=== PATIENT | male | born 1935 | race Caucasian/White ===

== ENCOUNTER → 2017-08-16 07:35 | Outpatient (CLI) | payer MEDICARE, BC ==
[2010-05-25 12:57] VITALS: BMI 28.1
== END | disposition home or self-care (01) ==
LOC: D.RT 07:35
DX: Z77.090 Contact with and (suspected) exposure to asbestos (principal)

== ENCOUNTER → 2017-10-24 17:35 | Outpatient (CLI) | payer MEDICARE, BC ==
[2010-05-25 12:57] VITALS: BMI 28.1
[2017-10-24 20:51] LABS: CHOL - HDL RATIO 1.9 ratio (2.3-4.9); LDL-HDL RATIO 0.8 ratio (1.5-3.5)
== END | disposition home or self-care (01) ==
LOC: D.LABREF 17:35
PROVIDERS: Internal Medicine Cardiovascular Disease
DX: E78.5 Hyperlipidemia, unspecified (principal)

== ENCOUNTER → 2019-02-17 12:52 | Outpatient (CLI) | payer MEDICARE, BC ==
[2010-05-25 12:57] VITALS: BMI 28.1
== END | disposition home or self-care (01) ==
LOC: D.RT 12:52
PROVIDERS: ATTEND Internal Medicine Pulmonary Disease
DX: J44.9 Chronic obstructive pulmonary disease, unspecified (principal)

== ENCOUNTER → 2020-02-16 11:37 | Outpatient (CLI) | payer MEDICARE, BC ==
[2010-05-25 12:57] VITALS: BMI 28.1
== END | disposition home or self-care (01) ==
LOC: D.LAB 11:37
PROVIDERS: ATTEND Internal Medicine Pulmonary Disease
DX: Z11.59 Encounter for screening for other viral diseases (principal)

== ENCOUNTER → 2020-02-19 14:55 | Outpatient (CLI) | payer MEDICARE, BC ==
[2010-05-25 12:57] VITALS: BMI 28.1
== END | disposition home or self-care (01) ==
LOC: D.RT 14:55
PROVIDERS: ATTEND Internal Medicine Pulmonary Disease
DX: J44.9 Chronic obstructive pulmonary disease, unspecified (principal)

== ENCOUNTER 2020-10-19 20:40 | Observation (INO) | payer MEDICARE, BC ==
[~2020-10-19] VITALS: Ht 172.7 cm; Wt 79.5 kg
[2020-10-19 21:17] LABS: BASOPHILS 0.3 % (0-2); EOSINOPHILS 1.2 % (0-7); HEMOGLOBIN 11.9 g/dL (13.5-17.5); IMMATURE GRANULOCYTES 0.3 % (0-5); LYMPHOCYTE ABS# 1.09 10x3/uL (1.32-3.57); LYMPHOCYTES 14.2 % (15-50); MCH 29.8 pg (26.0-34.0); MCHC 32.2 g/dL (31.0-37.0); MCV 92.5 fL (80.0-100.0); MEAN PLATELET VOLUME 9.9 fL (7.4-10.4); MONOCYTES 6.4 % (2-11); NEUTROPHIL ABS# 5.95 10x3/uL (1.78-5.38); NEUTROPHILS 77.6 % (40-80); WBC 7.7 10x3/uL (4.8-10.8)
[2020-10-19 21:18] LABS: CALC OSMOLALITY 275 mosm/kg (275-300); CALCIUM 8.6 mg/dL (8.5-10.1); CARBON DIOXIDE 23.4 mmol/L (21.0-32.0); CHLORIDE - SERUM 103 mmol/L (98-107); CREATININE - SERUM 1.2 mg/dL (0.6-1.3); GLUCOSE 125 mg/dL (74-106); POTASSIUM - SERUM 3.8 mmol/L (3.5-5.1); SODIUM 137 mmol/L (136-145); UREA NITROGEN 15 mg/dL (7-18); eGFR NON AFRICAN AMERICAN 61 mL/min (90-120)
[2020-10-19 21:20] LABS: PLATELET COUNT 231 10x3/uL (130-400)
[2020-10-19 21:24] LABS: APTT 26.7 SECONDS (22.8-39.4); INR 1.05 (0.85-1.17); PROTIME 12.7 SECONDS (11.6-15.0)
[2020-10-19 21:25] LABS: D-DIMER-QUANTITATIVE 1.97 ug/mLFEU (0.20-0.54)
[2020-10-19 21:33] LABS: ALBUMIN 3.2 g/dL (3.4-5.0); ALKALINE PHOSPHATASE 78 U/L (30-120); ALT (SGPT) 16 U/L (10-68); BILIRUBIN - TOTAL 0.59 mg/dL (0.2-1.3); C-REACTIVE PROTEIN 2.1 mg/dL (0.0-0.9); LIPASE 55 U/L (73-393); PRO BNP 245 pg/mL (0-450); PROTEIN - SERUM 6.6 g/dL (6.4-8.2); THYROID STIMULATING HORMONE 0.49 uIU/mL (0.36-3.74)
[2020-10-19 21:42] LABS: NITRITE NEGATIVE (NEGATIVE)
[2020-10-19 21:43] LABS: BILIRUBIN NEGATIVE (NEGATIVE); KETONE MODERATE mg/dL (NEGATIVE); UROBILINOGEN NORMAL mg/dL (< 2)
[2020-10-19 21:48] VITALS: BP 132/64
[2020-10-19 21:53] LABS: TROPONIN-I < 0.017 ng/mL (0.000-0.060)
[2020-10-19 22:50] VITALS: BP 100/54
[2020-10-19 23:25] LABS: UDS - AMPHET NEGATIVE QUAL (NEGATIVE); UDS - BARB NEGATIVE QUAL (NEGATIVE); UDS - BENZO NEGATIVE QUAL (NEGATIVE); UDS - COCAINE NEGATIVE QUAL (NEGATIVE); UDS - OPIATE POSITIVE QUAL (NEGATIVE); UDS - PCP NEGATIVE QUAL (NEGATIVE); UDS - THC NEGATIVE QUAL (NEGATIVE)
[2020-10-19 23:52] VITALS: BP 126/66
[2020-10-20 00:46] VITALS: BP 114/62
[2020-10-20] MEDS ORDERED: HYDROCODONE-AC1 EAC2 PO (02:03)
[2020-10-20] MEDS ORDERED: FLOMAX0.4 MG PO (02:04)
[2020-10-20] MEDS ORDERED: LEVOXYL75 MCG PO (02:06)
[2020-10-20] MEDS ORDERED: ALBUTEROL SULF8.5 GM INH (02:07)
[2020-10-20 02:15] VITALS: BP 154/64; Ht 172.7 cm; Wt 79.5 kg
--- NOTE | 2020-10-20 02:30 | NUR ---
RECIEVED REPORT FROM LORENA RN IN ER.ARRIVED TO FLOOR ON STRETCHER. ALERT AND ORIENTED X4. UP AD GRACIE. ASSESSMENT COMPLETED.
[2020-10-20 04:00] VITALS: BP 111/45
--- NOTE | 2020-10-20 07:20 | NUR ---
Lying in bed, awake/alert/oriented, T/R self ad carlos, cont of B/B with BRPs with assist ad carlos, denies pain/other discomfort at this time, call light/phone/water within reach, no s/s of acute distress observed.
[2020-10-20 08:01] VITALS: BP 133/60
--- NOTE | 2020-10-20 10:49 | NUR ---
Provided written/verbal discharge instructions/education to which he verbalized understanding, call light/phone/water within reach, no s/s of acute distress observed.
[2020-10-20 11:17] VITALS: BP 121/60
--- NOTE | 2020-10-20 12:18 | NUR ---
Discontinued IV access/cardiac telemetry monitoring, discharged home to self care in stable condition via w/c accompanied by hospital staff, no s/s of acute distress observed.
== END 2020-10-20 12:18 | disposition home or self-care (01) ==
LOC: D.ER 20:40 → D.M2 10-20 01:25 → OBSVTIME 10-20 01:25 → D.ER 10-20 01:38 → D.M2 10-20 12:18
PROVIDERS: Family Medicine; ADMIT Emergency Medicine; ATTEND Emergency Medicine
DX: I95.9 Hypotension, unspecified (principal); G92 Toxic encephalopathy; N40.0 Benign prostatic hyperplasia without lower urinary tract symptoms; E03.9 Hypothyroidism, unspecified; J44.9 Chronic obstructive pulmonary disease, unspecified; G89.29 Other chronic pain